=== PATIENT | male | born 1975 | race African-American/Black ===

== ENCOUNTER 2019-02-22 22:40 | Emergency (ER) | payer MEDICAID ==
[~2019-02-22] VITALS: Ht 193 cm; Wt 111.1 kg
--- NOTE | 2019-02-22 23:50 | NUR ---
PT BIBSELF, PT C/C IS SUICDAL IDEATION WITH PLANS TO CUTS WRIST. PT TO BED 6, SECURITY CALLED FOR PT TO BED WANDED FOR SAFETY, PT IS CALM AND COOPERATIVE WITH CARE, ALL BELOGINGS IN LOCKER FOR SAFETY, PT ON A MONITOR, VSS, -SOB, NAD NOTED, PENDING MD WINSTON
--- NOTE | 2019-02-22 23:55 | NUR ---
PLACED IN ROOM, BELONGINGS TAKEN TO NURSES STATION. WANDED AND CLEARED BY SECURITY.
[2019-02-23 00:13] LABS: APPEARANCE,URINE Clear (CLEAR); BILIRUBIN,URINE SMALL (NEGATIVE); BLOOD, URINE Negative Ery/uL (NEGATIVE); COLOR,URINE Yellow (YELLOW); KETONES,URINE Negative (NEGATIVE); LEUKOCYTE ESTERASE ,URINE Negative (NEGATIVE); NITRITE, URINE Negative (NEGATIVE); PROTEIN,URINE Trace mg/dl (NEGATIVE); UGLUCOSE Negative (NEGATIVE)
[2019-02-23 00:24] LABS: BASOPHILS % (AUTO) 0.5 % (0.0-2.0); HEMATOCRIT 40 % (39-51); HEMOGLOBIN 13.5 g/dL (13.5-17.5); LYMPHOCYTES % (AUTO) 23.2 % (20.0-44.0); MEAN CORPUSCULAR HGB CONC 34 g/dl (31.0-36.0); MEAN CORPUSCULAR VOLUME 89 fL (80-96); MONOCYTES # (AUTO) 0.8 /CMM (0.1-1.30); MONOCYTES % (AUTO) 9.7 % (2.0-12.0); NEUTROPHILS # (AUTO) 5.5 /CMM (1.8-8.9); NEUTROPHILS % (AUTO) 64.6 % (43.0-81.0); PLATELET COUNT (AUTO) 312 /CMM (150-450); WHITE BLOOD COUNT (AUTO) 8.5 K/uL (4.3-11.0)
--- NOTE | 2019-02-23 00:50 | NUR ---
PT WAS YELLING IN THE HALLWAY ASKING FOR FOOD AND WATER. WENT TO PATIENT'S ROOM TO ADDRESS PATIENTS CONCERN, PT SEEMED TO BE MORE AGITATED. TOLD PATIENT THAT I WILL GRAB HIM SOME SNACKS
[2019-02-23 00:57] LABS: CALCIUM, SERUM 8.4 mg/dL (8.5-10.1); CARBON DIOXIDE 30 mmol/L (21-32); CHLORIDE 106 mmol/L (98-107); GLUCOSE 111 mg/dL (74-106); POTASSIUM 3.7 mmol/L (3.5-5.1); SODIUM SERUM 143 mmol/L (136-145); UREA NITROGEN, BLOOD 18 mg/dL (7-18)
--- NOTE | 2019-02-23 01:03 | NUR ---
PT WANDERING THE HALLWAY SCREAMING "I WANT SOME ICE WATER, I WANT SOME ICE WATER" PT WAS ASKED TO GO BACK TO THE ROOM AND WE WILL BRING THE ICE WATER TO HIM. PT TURNED AROUND WITH CLINCHED FIST. SECURITY CALLED FOR ASSISTANCE.
--- NOTE | 2019-02-23 01:06 | NUR ---
PT ASSISTED BACK TO THE ROOM. ER MADE AWARE OF PT BEHAVIOR WITH ORDERS RECEIVED.
[2019-02-23 01:09] LABS: ALANINE AMINOTRANSFERASE 28 U/L (12-78); ALBUMIN 3.7 g/dL (3.4-5.0); ALCOHOL, BLOOD < 3 mg/dL (0-0); ALKALINE PHOSPHATASE 97 U/L (46-116); ASPARTATE AMINOTRANSFERASE 28 U/L (15-37); BILIRUBIN,DIRECT 0.1 mg/dL (0.0-0.2); BILIRUBIN,TOTAL 0.4 mg/dL (0.2-1.0); TOTAL PROTEIN, SERUM 7.2 g/dL (6.4-8.2)
[2019-02-23 01:10] LABS: ACETAMINOPHEN 0 ug/ml (10-30); SALICYLATE 1.3 mg/dL (2.8-20.0)
[2019-02-23 01:11] LABS: BACTERIA,URINE None seen /HPF (None Seen); MUCUS,URINE Few /LPF (None Seen); RBC,URINE 0-2 /HPF (0-2); SQUAMOUS EPITHELIAL CELL,UR Few /HPF (None Seen); WBC,URINE 0-2 /HPF (0-3)
[2019-02-23] MEDS ORDERED: OLANZAPINE 10 MG VIAL IM ONE ×2 (01:30)
[2019-02-23] MEDS ORDERED: LORAZEPAM INJ 2 MG/ML VIAL ONE (02:01)
[2019-02-23] MEDS ORDERED: LORAZEPAM INJ 2 MG/ML VIAL IM ONE (02:30)
--- NOTE | 2019-02-23 12:30 | NUR ---
CALLED [facility] FOR UPDATE, NO CHANGES
--- NOTE | 2019-02-23 13:09 | NUR ---
CALLED [facility] FOR FOOD TRAY
--- NOTE | 2019-02-23 14:35 | NUR ---
CATTLE PRODUCERS PINKY AT BEDSIDE FOR EVAL.
--- NOTE | 2019-02-23 15:43 | NUR ---
DR JORGENSEN AT BEDSIDE
--- NOTE | 2019-02-23 16:07 | NUR ---
PER ARUN, WILL FOLLOW UP WITH NATHANER FOR PLACEMENT
--- NOTE | 2019-02-23 18:33 | NUR ---
CALLED FOR FOOD TRAY
--- NOTE | 2019-02-23 22:21 | NUR ---
PT RESTING COMFORTABLY IN BED. NO COMPLAINTS AT THIS TIME. WILL CONT TO MONITOR ACCORDINGLY
--- NOTE | 2019-02-24 00:05 | NUR ---
PATIENT CURSING AND INSTIGATING TOWARD OTHER PATIENT IN ER.
--- NOTE | 2019-02-24 03:45 | NUR ---
PT AT NURSES STATING, VERBALLY AGGRESSIVE TOWARDS STAFF, THREATENING STAFF. REFUSING TO RETURN TO BED. PT UNCOOPERATIVE. SECURITY AND NURSING SUP NOTIFIED.
[2019-02-24] MEDS ORDERED: OLANZAPINE 10 MG VIAL IM ONE ×2 (07:12→07:30)
[2019-02-24] MEDS ORDERED: LORAZEPAM INJ 2 MG/ML VIAL ONE (09:07)
[2019-02-24] MEDS ORDERED: LORAZEPAM INJ 2 MG/ML VIAL IM ONE (09:08)
--- NOTE | 2019-02-24 09:08 | NUR ---
PT IS AGITATED, TRYING TO TILT THE BED OVER. YELLING. ERMD AWARE. ATIVAN 2MG IM GIVEN PER ERMD VERBAL ORDER.
--- NOTE | 2019-02-24 09:36 | NUR ---
PT YELLING, CALLING STAFF, SITTER AT BEDSIDE, PT STATES " IM NOT SUICIDAL, BUT IM HOMICIDAL, IM GOING TO KILL ALL OF YOU". CHECKED EXTREMITIES FOR CIRCULATION, PT IS ALERT AND ORIENTED, DENIES ANY PAIN/DISCOMFORT, VSS, NAD NOTED.
[2019-02-24] MEDS ORDERED: VENL75CA62 PO (14:41)
[2019-02-24] MEDS ORDERED: OLAN10TA3 PO (14:41)
--- NOTE | 2019-02-24 15:05 | NUR ---
REPORT GIVEN TO JATIN. WILL BE TRANSFERED TO [facility]. ACCEPTING . DR RINCON
--- NOTE | 2019-02-24 15:11 | NUR ---
SPOKE TO EVI FROM [facility], [facility] TRANSPORT ARRANGED, ETA 1630, TRIP NUMBER [id number].
[2019-02-24 16:35] VITALS: BP 118/50
== END 2019-02-24 16:54 ==
LOC: ER 22:44
DX: R45.851 Suicidal ideations (principal); F19.10 Other psychoactive substance abuse, uncomplicated; F90.9 Attention-deficit hyperactivity disorder, unspecified type; G40.909 Epilepsy, unspecified, not intractable, without status epilepticus; G89.29 Other chronic pain; Z60.2 Problems related to living alone
CPT/HCPCS: 36415; 80048; 80076; 80305; 80307; 80329; 81001; 85025; 96372 ×4; 99285; G0480; J2060 ×2; J3490 ×2; 81000-TC

== ENCOUNTER 2019-03-07 14:44 | Emergency (ER) | payer MEDICAID ==
[~2019-03-07] VITALS: Ht 193 cm; Wt 108.9 kg
[~2019-03-07 14:44] MED LIST: OLAN10TA3 PO; VENL75CA62 PO
[2019-03-07 14:51] VITALS: BP 152/92
--- NOTE | 2019-03-07 18:04 | NUR ---
Patient discharged to home in stable condition. Written and verbal after care instructions given. Patient verbalizes understanding of instruction.
== END 2019-03-07 18:06 | disposition home or self-care (01) ==
LOC: ER 14:46
DX: S02.5XXA Fracture of tooth (traumatic), initial encounter for closed fracture (principal); M25.561 Pain in right knee; G40.909 Epilepsy, unspecified, not intractable, without status epilepticus; F31.9 Bipolar disorder, unspecified; F10.10 Alcohol abuse, uncomplicated; Y90.9 Presence of alcohol in blood, level not specified; Z60.2 Problems related to living alone; W18.39XA Other fall on same level, initial encounter; Y93.89 Activity, other specified; Y92.89 Other specified places as the place of occurrence of the external cause; Y99.8 Other external cause status

== ENCOUNTER 2019-04-29 13:33 | Emergency (ER) | payer MEDICAID, OTHER ==
[~2019-04-29] VITALS: Ht 193 cm; Wt 106.6 kg
--- NOTE | 2019-04-29 14:00 | NUR ---
patient came in to the er c/o panic attack since last night, no sob, denies SI/HI. on room air, breathing evenly and unlabored. connected to the monitor and pulse ox. will continue to monitor accordingly.
[2019-04-29] MEDS ORDERED: OLANZAPINE 5 MG TABLET ONE (14:26)
[2019-04-29] MEDS ORDERED: LEVETIRACETAM (250 MG) 250 MG TABLET PO ONE ×2 (14:30→14:32)
[2019-04-29] MEDS ORDERED: OLANZAPINE 5 MG TABLET PO ONE (14:30)
[2019-04-29 14:36] LABS: BASOPHILS % (AUTO) 0.4 % (0.0-2.0); EOSINOPHILS % (AUTO) 2.4 % (0.0-6.0); HEMATOCRIT 41 % (39-51); HEMOGLOBIN 13.7 g/dL (13.5-17.5); LYMPHOCYTES # (AUTO) 1.7 /CMM (0.8-4.8); LYMPHOCYTES % (AUTO) 23.4 % (20.0-44.0); MEAN CORPUSCULAR HGB CONC 33 g/dl (31.0-36.0); MEAN CORPUSCULAR VOLUME 89 fL (80-96); MONOCYTES # (AUTO) 0.6 /CMM (0.1-1.30); MONOCYTES % (AUTO) 8.3 % (2.0-12.0); NEUTROPHILS # (AUTO) 4.8 /CMM (1.8-8.9); NEUTROPHILS % (AUTO) 65.5 % (43.0-81.0); PLATELET COUNT (AUTO) 306 /CMM (150-450); RED BLOOD CELL COUNT(AUTO) 4.63 MIL/uL (4.5-6.0); WHITE BLOOD COUNT (AUTO) 7.3 K/uL (4.3-11.0)
[2019-04-29 14:58] LABS: ALANINE AMINOTRANSFERASE 14 U/L (12-78); ALBUMIN 3.8 g/dL (3.4-5.0); ALKALINE PHOSPHATASE 85 U/L (46-116); ASPARTATE AMINOTRANSFERASE 17 U/L (15-37); BILIRUBIN,DIRECT 0.1 mg/dL (0.0-0.2); BILIRUBIN,TOTAL 0.4 mg/dL (0.2-1.0); CARBON DIOXIDE 28 mmol/L (21-32); CHLORIDE 103 mmol/L (98-107); CREATININE 0.9 mg/dL (0.6-1.3); GLUCOSE 85 mg/dL (74-106); POTASSIUM 3.6 mmol/L (3.5-5.1); SODIUM SERUM 139 mmol/L (136-145); TOTAL PROTEIN, SERUM 7.5 g/dL (6.4-8.2); UREA NITROGEN, BLOOD 18 mg/dL (7-18)
[2019-04-29 14:59] LABS: ALCOHOL, BLOOD < 3 mg/dL (0-0); SALICYLATE < 2.8 mg/dL (2.8-20.0)
--- NOTE | 2019-04-29 15:40 | NUR ---
Yuliana social security assessor at bedside for eval.
--- NOTE | 2019-04-29 15:45 | NUR ---
Social service consult requested by Dr. Landon for voluntary psychiatric admission. Pt. is a 43 year old male who came to [facility] ED complaining of panic attacks and anxiety. SW met with pt. bedside. Pt. is alert and oriented x 4. Pt. has tattoos over both his arms. Pt. states he has been homeless for a week. He was living at " [facility]" [facility] but left there on a 5150 hold to [facility]. Pt. has a psychiatric diagnosis of Bipolar. Pt. informed Dr. Landon that he is hearing voices that are telling him that "people are out to get me." Pt. is a methamphetamine user and last used this morning. Pt. also uses marijuana and drinks alcohol. Pt. has been to an outpatient treatment program in the past named [facility] in [place]. Pt. is seeking voluntary psychiatric admission to [facility]. Pt. states he is not allowed to go to [facility]. TICO contacted Demian at [facility] requesting a bed for the pt. at [place]. Demian will check with [facility] and follow up with TICO.
--- NOTE | 2019-04-29 15:46 | NUR ---
urine collected and sent to lab.
[2019-04-29 15:52] LABS: APPEARANCE,URINE Clear (CLEAR); BILIRUBIN,URINE Negative (NEGATIVE); BLOOD, URINE Negative Ery/uL (NEGATIVE); COLOR,URINE Yellow (YELLOW); KETONES,URINE Negative (NEGATIVE); LEUKOCYTE ESTERASE ,URINE Negative (NEGATIVE); NITRITE, URINE Negative (NEGATIVE); PROTEIN,URINE Negative (NEGATIVE); UGLUCOSE Negative (NEGATIVE); UROBILINOGEN,URINE 0.2 EU/dL (0.2)
--- NOTE | 2019-04-29 16:05 | NUR ---
TICO called Demian to follow up regarding pt. being accepted to [facility]. Demian informed SW he is waiting for [facility] to get back to him. Demian informed TICO to have ER staff follow up with him. TICO updated JERICHO Cisneros in ED with aforementioned information.
--- NOTE | 2019-04-29 18:07 | NUR ---
Received a call from [facility] intake regardinig patient going to [facility] and will call back for updates once bed available.
--- NOTE | 2019-04-29 19:35 | NUR ---
KRYSTLE FROM [facility] P [phone] F [phone]
--- NOTE | 2019-04-29 20:04 | NUR ---
RECEIVED REPORT FROM JERICHO VERGARA FOR [facility], PT IS AAOX4, NOT IN RESPIRATORY DISTRESS, V/S STABLE, KEPT RESTED AND COMFORTABLE, WILL CONTINUE TO MONITOR.
--- NOTE | 2019-04-29 21:20 | NUR ---
PER [facility] INTAKE, BED NO LONGER AVAILABLE AT [facility]. CLINICAL INFORMATION WILL BE SENT TO [place], PENDING MORE INFORMATION ON POSSIBLE TRANSFER
--- NOTE | 2019-04-29 22:48 | NUR ---
PER SOC[facility] INTAKE, PT ACCEPTED TO [facility]. PENDING MORE INFORMATION
--- NOTE | 2019-04-30 00:55 | NUR ---
PER [facility] INTAKE, PT SUICIDAL IDEATION W/ PLAN MUST BE FAXED AND WILL CALL BACK FOR UPDATES
--- NOTE | 2019-04-30 01:23 | NUR ---
PER [facility] INTAKE, RECEIVED FAX ON UPDATED MD NOTE. WILL UPDATE WITH NEW INFORMATION FOR TRANSFER
--- NOTE | 2019-04-30 04:11 | NUR ---
CALLED [facility] INTAKE FOR UPDATE, CLINICAL INFORMATION BEING REVIEWED BY [facility] SUPERVISOR, WILL CALL BACK FOR MORE INFORMATION.
--- NOTE | 2019-04-30 05:22 | NUR ---
PER SOC[facility] INTAKE, NO BEDS AVAILABLE AT THIS TIME FOR [facility]
--- NOTE | 2019-04-30 05:35 | NUR ---
CALLED DECLAN, RETAIL ADMINISTRATIVE ASSISTANT FOR EVALUATION. NO ANSWER. WILL FOLLOW UP
--- NOTE | 2019-04-30 06:01 | NUR ---
PT ACCEPTED TO [facility]. CALLED [facility] FOR TRANSPORTATION, PENDING ETA
--- NOTE | 2019-04-30 06:13 | NUR ---
[facility] ETA 0700A, TRIP #[id number].
--- NOTE | 2019-04-30 06:14 | NUR ---
REPORT GIVEN TO JERICHO BHARDWAJ OF [facility] FOR [facility].
[2019-04-30 06:46] VITALS: BP 106/59
--- NOTE | 2019-04-30 07:09 | NUR ---
GAVE REPORT TO [place] [id number] FOR TRANSPORTATION BRE[facility]
== END 2019-04-30 07:11 | disposition short-term general hospital (02) ==
LOC: ER 13:47
DX: F29 Unspecified psychosis not due to a substance or known physiological condition (principal); F41.9 Anxiety disorder, unspecified; R56.9 Unspecified convulsions; G89.29 Other chronic pain; M25.569 Pain in unspecified knee; F31.9 Bipolar disorder, unspecified; F10.10 Alcohol abuse, uncomplicated; F12.10 Cannabis abuse, uncomplicated; F15.10 Other stimulant abuse, uncomplicated; Y90.0 Blood alcohol level of less than 20 mg/100 ml; Z60.2 Problems related to living alone; Z79.899 Other long term (current) drug therapy
CPT/HCPCS: 36415; 80048; 80076; 80305; 80307; 80329; 81001; 85025; 99285; G0480; 81000-TC

== ENCOUNTER 2019-07-05 07:22 | Emergency (ER) | payer OTHER ==
[~2019-07-05] VITALS: Ht 193 cm; Wt 102.1 kg
--- NOTE | 2019-07-05 07:39 | NUR ---
PATIENT STATES "FEELING HOPELESS/SUICIDAL FOR COUPLE OF DAYS, NO PLANS FOR NOW". TO ER BED 13, CHANGED TO HOSP GOWN, WANDED BY SECURITY, SITTER AT BEDSIDE, AWAITING MD WINSTON. KEPT COMFORTABLE AND SAFE.
[2019-07-05 08:04] LABS: BASOPHILS % (AUTO) 0.5 % (0.0-2.0); EOSINOPHILS % (AUTO) 3.8 % (0.0-6.0); HEMATOCRIT 40 % (39-51); HEMOGLOBIN 13.3 g/dL (13.5-17.5); LYMPHOCYTES # (AUTO) 1.6 /CMM (0.8-4.8); LYMPHOCYTES % (AUTO) 28.5 % (20.0-44.0); MEAN CORPUSCULAR HGB CONC 33 g/dl (31.0-36.0); MEAN CORPUSCULAR VOLUME 89 fL (80-96); MONOCYTES # (AUTO) 0.5 /CMM (0.1-1.30); MONOCYTES % (AUTO) 8.3 % (2.0-12.0); NEUTROPHILS # (AUTO) 3.3 /CMM (1.8-8.9); NEUTROPHILS % (AUTO) 58.9 % (43.0-81.0); PLATELET COUNT (AUTO) 283 /CMM (150-450); RED BLOOD CELL COUNT(AUTO) 4.52 MIL/uL (4.5-6.0); WHITE BLOOD COUNT (AUTO) 5.7 K/uL (4.3-11.0)
--- NOTE | 2019-07-05 08:04 | NUR ---
SUPERVISOR STITCHING DEPARTMENT FAUZIA AT BEDSIDE
[2019-07-05 08:07] LABS: CALCIUM, SERUM 8.6 mg/dL (8.5-10.1); CREATININE 0.7 mg/dL (0.6-1.3); POTASSIUM 3.6 mmol/L (3.5-5.1)
--- NOTE | 2019-07-05 08:12 | NUR ---
PATIENT STATES "I PLAN TO CUT MY WRIST".
[2019-07-05 08:13] LABS: ALBUMIN 3.6 g/dL (3.4-5.0); BILIRUBIN,DIRECT 0.1 mg/dL (0.0-0.2); BILIRUBIN,TOTAL 0.4 mg/dL (0.2-1.0); TOTAL PROTEIN, SERUM 7.3 g/dL (6.4-8.2)
[2019-07-05 08:15] LABS: SALICYLATE 1.6 mg/dL (2.8-20.0)
--- NOTE | 2019-07-05 08:17 | NUR ---
[facility]AKFAST TRAY PROVIDED, TOLERATING PO WELL.
--- NOTE | 2019-07-05 08:20 | NUR ---
Social service consult requested by Dr. Vincent for suicidal ideations with a plan. Pt. is a 43 year old male who presented to the emergency room complaining of feeling depressed and suicidal. Patient states he plans to jump off the [employer] building and he also states that his cut his wrists in the past. SW met with the pt. bedside. Pt. is alert and oriented x 4. Pt. appears to have a foul odor. Pt. is homeless and has been for a while. Pt. states he sleeps here and there in the [facility]. Pt. is on probation, however states, his probation ends on July 082019. Pt. appears disheveled. Pt. has tattoos on both is arms. Pt's mood is congruent. Pt. informed SW, he is feeling depressed, hopeless and has a plan to jump off the [employer] or any bridge and cut his wrists as he has done in the past. Pt. denies homicidal ideations and visual/auditory hallucinations at this time. Pt. is seeking voluntary hospitalization at [facility]. Pt. was hospitalized voluntary at [facility] in April 2019. Pt. has had several psychiatric hospitalizations. Pt. has a psychiatric diagnosis of Bipolar and takes Zyprexa, Wellbutrin and Keppra. Pt. states he is complaint with his medications. Pt. admits to using methamphetamines, marijuana and alcohol. Pt. sees a psychiatrist at [place] [address], a forensic Treatment agency located at [address] [place] [address] in [place] . SW to refer pt. to [facility] for voluntary psychiatric hospitalization. TICO contacted Demian at [facility] and initiated the process. SW to fax clinicals once labs are available.
--- NOTE | 2019-07-05 08:33 | NUR ---
URINE SAMPLE SENT TO LAB
--- NOTE | 2019-07-05 09:53 | NUR ---
Clinical referral packet faxed to [facility] .
[2019-07-05 10:14] LABS: APPEARANCE,URINE CLEAR (CLEAR); BILIRUBIN,URINE NEGATIVE (NEGATIVE); BLOOD, URINE NEGATIVE Ery/uL (NEGATIVE); COLOR,URINE YELLOW (YELLOW); KETONES,URINE 15 (NEGATIVE); LEUKOCYTE ESTERASE ,URINE NEGATIVE (NEGATIVE); NITRITE, URINE NEGATIVE (NEGATIVE); PH,URINE 5.5 (5.0-8.0); PROTEIN,URINE NEGATIVE (NEGATIVE); UGLUCOSE NEGATIVE (NEGATIVE); UROBILINOGEN,URINE 0.2 EU/dL (0.2)
[2019-07-05 10:19] LABS: BACTERIA,URINE Rare /HPF (None Seen); RBC,URINE 0-2 /HPF (0-2); SQUAMOUS EPITHELIAL CELL,UR Rare /HPF (None Seen); URIC ACID CRYSTALS,URINE Rare /HPF (None Seen)
--- NOTE | 2019-07-05 11:48 | NUR ---
FAXED NOTE TO [facility]
--- NOTE | 2019-07-05 12:11 | NUR ---
[facility] ETA 1300 TRIP#[id number]
--- NOTE | 2019-07-05 13:06 | NUR ---
UPDATED ETA 10 MIN
--- NOTE | 2019-07-05 14:11 | NUR ---
REPORT GIVEN TO [facility] FOR CONTINUITY OF CARE
[2019-07-05 15:32] VITALS: BP 131/81
== END 2019-07-05 15:38 ==
LOC: ER 07:26
DX: R45.851 Suicidal ideations (principal); F15.10 Other stimulant abuse, uncomplicated; G89.29 Other chronic pain; F31.9 Bipolar disorder, unspecified; Z60.2 Problems related to living alone; Z79.899 Other long term (current) drug therapy
CPT/HCPCS: 36415; 80048; 80076; 80305; 80307; 80329; 81001; 85025; 99285; G0480; 81000-TC

== ENCOUNTER 2019-07-13 18:59 | Emergency (ER) | payer OTHER ==
[~2019-07-13] VITALS: Ht 185.4 cm; Wt 80.3 kg
[2019-07-13 20:04] VITALS: BP 144/78
[2019-07-13 20:13] LABS: BASOPHILS # (AUTO) 0.1 /CMM (0.0-0.2); BASOPHILS % (AUTO) 0.8 % (0.0-2.0); EOSINOPHILS % (AUTO) 2.1 % (0.0-6.0); HEMATOCRIT 43 % (39-51); HEMOGLOBIN 14.3 g/dL (13.5-17.5); LYMPHOCYTES # (AUTO) 2.4 /CMM (0.8-4.8); LYMPHOCYTES % (AUTO) 30.1 % (20.0-44.0); MEAN CORPUSCULAR HGB CONC 33 g/dl (31.0-36.0); MEAN CORPUSCULAR VOLUME 88 fL (80-96); MONOCYTES # (AUTO) 0.6 /CMM (0.1-1.30); MONOCYTES % (AUTO) 7.9 % (2.0-12.0); NEUTROPHILS # (AUTO) 4.8 /CMM (1.8-8.9); NEUTROPHILS % (AUTO) 59.1 % (43.0-81.0); PLATELET COUNT (AUTO) 358 /CMM (150-450); RED BLOOD CELL COUNT(AUTO) 4.87 MIL/uL (4.5-6.0); WHITE BLOOD COUNT (AUTO) 8.1 K/uL (4.3-11.0)
[2019-07-13 20:15] LABS: APPEARANCE,URINE Clear (CLEAR); BILIRUBIN,URINE Negative (NEGATIVE); BLOOD, URINE Negative Ery/uL (NEGATIVE); COLOR,URINE Yellow (YELLOW); KETONES,URINE 15 (NEGATIVE); LEUKOCYTE ESTERASE ,URINE Negative (NEGATIVE); NITRITE, URINE Negative (NEGATIVE); PH,URINE 5.5 (5.0-8.0); PROTEIN,URINE Negative (NEGATIVE); UGLUCOSE Negative (NEGATIVE); UROBILINOGEN,URINE 0.2 EU/dL (0.2)
[2019-07-13 20:20] LABS: CALCIUM, SERUM 9.4 mg/dL (8.5-10.1); CARBON DIOXIDE 30 mmol/L (21-32); CHLORIDE 101 mmol/L (98-107); GLUCOSE 92 mg/dL (74-106); POTASSIUM 4.1 mmol/L (3.5-5.1); SODIUM SERUM 139 mmol/L (136-145); UREA NITROGEN, BLOOD 17 mg/dL (7-18)
--- NOTE | 2019-07-13 20:21 | NUR ---
BIBS TO ER BED 13. AAOX4. NO RESP DISTRESS NOTED. AMBULATORY. CAME IN FOR SUICIDAL IDEATION W/ PLAN TO CUT HIS WRIST. DENIES HI. DENIES VISUAL AND AUDITORY HALLUCINATION. PT STRIPPED OFF CLOTHING AND BELONGINGS PLACED IN THE LOCKER LOCATED IN THE UTILITY ROOM. VISUAL INSPECTED FOR ANY CONTRABAND. 1:1 SITTER AT BEDSIDE. MD AT BEDSIDE FOR EVAL.
[2019-07-13 20:26] LABS: ACETAMINOPHEN < 2 ug/ml (10-30); ALANINE AMINOTRANSFERASE 29 U/L (12-78); ALCOHOL, BLOOD < 3 mg/dL (0-0); ALKALINE PHOSPHATASE 85 U/L (46-116); ASPARTATE AMINOTRANSFERASE 25 U/L (15-37); BILIRUBIN,DIRECT 0.2 mg/dL (0.0-0.2); BILIRUBIN,TOTAL 0.7 mg/dL (0.2-1.0); SALICYLATE 1.1 mg/dL (2.8-20.0); TOTAL PROTEIN, SERUM 8.2 g/dL (6.4-8.2)
[2019-07-13 20:30] LABS: BACTERIA,URINE Moderate /HPF (None Seen); RBC,URINE 0-2 /HPF (0-2); SQUAMOUS EPITHELIAL CELL,UR Few /HPF (None Seen); WBC,URINE 0-2 /HPF (0-3)
[2019-07-13] MEDS ORDERED: LORAZEPAM 1 MG TABLET PO ONE (20:30)
[2019-07-13] MEDS ORDERED: LORAZEPAM 1 MG TABLET ONE (20:43)
--- NOTE | 2019-07-14 00:16 | NUR ---
TRANSFER INFO: PT ACCEPTED BY DR VALADEZ AT [facility], RN FOR REPORT CHG JERICHO ROSARIO [phone] [phone], ROOM ASSIGNMENT GIVEN AFTER REPORT.
--- NOTE | 2019-07-14 00:36 | NUR ---
CALLED [facility] AWAITING CALL BACK WITH ETA REF#[phone]
--- NOTE | 2019-07-14 00:49 | NUR ---
[facility] ETA 0306
--- NOTE | 2019-07-14 01:53 | NUR ---
REPORT GIVEN TO TOÑO ECHAVARRIA FOR CONTINUATION OF CARE.
--- NOTE | 2019-07-14 03:51 | NUR ---
[facility] AT BEDSIDE FOR TRANSPORT.
== END 2019-07-14 04:03 ==
LOC: ER 19:01
DX: R45.851 Suicidal ideations (principal); F19.10 Other psychoactive substance abuse, uncomplicated; F25.9 Schizoaffective disorder, unspecified; I10 Essential (primary) hypertension; G40.909 Epilepsy, unspecified, not intractable, without status epilepticus; G89.29 Other chronic pain; Z60.2 Problems related to living alone; Z79.899 Other long term (current) drug therapy
CPT/HCPCS: 36415; 80048; 80076; 80305; 80307; 80329; 81001; 85025; 87086; 99285; G0480; 81000-TC

== ENCOUNTER 2019-11-08 21:52 | Emergency (ER) | payer OTHER ==
[~2019-11-08] VITALS: Ht 190.5 cm; Wt 103.0 kg
--- NOTE | 2019-11-08 21:54 | NUR ---
PT AAOX4. AMBULATORY. C/O "I HAVE SUICIDAL THOUGHTS ON KILLING MYSELF" SI WITH PLAN TO HANG SELF. BUT -HI. PLACED IN GOWN, ON MONITOR AND PULSE OX. VSS.
--- NOTE | 2019-11-08 22:24 | NUR ---
QI PLACED IN LOCKER. VSS.
[2019-11-08 23:35] LABS: APPEARANCE,URINE CLEAR (CLEAR); BILIRUBIN,URINE NEGATIVE (NEGATIVE); BLOOD, URINE NEGATIVE Ery/uL (NEGATIVE); COLOR,URINE YELLOW (YELLOW); KETONES,URINE NEGATIVE (NEGATIVE); LEUKOCYTE ESTERASE ,URINE NEGATIVE (NEGATIVE); NITRITE, URINE NEGATIVE (NEGATIVE); PROTEIN,URINE NEGATIVE (NEGATIVE); UGLUCOSE NEGATIVE (NEGATIVE)
[2019-11-08 23:35] LABS: CALCIUM, SERUM 8.5 mg/dL (8.5-10.1); CARBON DIOXIDE 29 mmol/L (21-32); CHLORIDE 102 mmol/L (98-107); GLUCOSE 98 mg/dL (74-106); POTASSIUM 3.5 mmol/L (3.5-5.1); SODIUM SERUM 140 mmol/L (136-145); UREA NITROGEN, BLOOD 11 mg/dL (7-18)
[2019-11-08 23:41] LABS: ALANINE AMINOTRANSFERASE 21 U/L (12-78); ALBUMIN 3.6 g/dL (3.4-5.0); ALCOHOL, BLOOD < 3 mg/dL (0-0); ALKALINE PHOSPHATASE 88 U/L (46-116); ASPARTATE AMINOTRANSFERASE 24 U/L (15-37); BILIRUBIN,DIRECT 0.1 mg/dL (0.0-0.2); BILIRUBIN,TOTAL 0.3 mg/dL (0.2-1.0); TOTAL PROTEIN, SERUM 7.6 g/dL (6.4-8.2)
[2019-11-08 23:42] LABS: ACETAMINOPHEN 0 ug/ml (10-30); SALICYLATE 2.2 mg/dL (2.8-20.0)
[2019-11-08 23:44] LABS: BASOPHILS % (AUTO) 0.3 % (0.0-2.0); EOSINOPHILS % (AUTO) 3.1 % (0.0-6.0); HEMATOCRIT 42 % (39-51); HEMOGLOBIN 13.8 g/dL (13.5-17.5); LYMPHOCYTES # (AUTO) 1.7 /CMM (0.8-4.8); LYMPHOCYTES % (AUTO) 26.8 % (20.0-44.0); MEAN CORPUSCULAR HGB CONC 33 g/dl (31.0-36.0); MEAN CORPUSCULAR VOLUME 88 fL (80-96); MONOCYTES # (AUTO) 0.4 /CMM (0.1-1.30); MONOCYTES % (AUTO) 6.7 % (2.0-12.0); NEUTROPHILS % (AUTO) 63.1 % (43.0-81.0); PLATELET COUNT (AUTO) 306 /CMM (150-450); WHITE BLOOD COUNT (AUTO) 6.3 K/uL (4.3-11.0)
[2019-11-08 23:47] LABS: BACTERIA,URINE None seen /HPF (None Seen); RBC,URINE 0-2 /HPF (0-2); SQUAMOUS EPITHELIAL CELL,UR Few /HPF (None Seen); WBC,URINE 0-2 /HPF (0-3)
--- NOTE | 2019-11-09 00:02 | NUR ---
Patient is resting comfortably in bed. Easily aroused. VSS.
--- NOTE | 2019-11-09 00:37 | NUR ---
CLINICAL INFORMATION FAXED TO [facility]
[2019-11-09 00:40] VITALS: BP 142/87
[2019-11-09] MEDS ORDERED: ACETAMINOPHEN 325 MG TABLET ONE (01:26)
[2019-11-09] MEDS ORDERED: LORAZEPAM 0.5 MG TABLET ONE (01:26)
[2019-11-09] MEDS: LORAZEPAM 1 MG TABLET PO ONE (01:30)
[2019-11-09] MEDS: ACETAMINOPHEN 325 MG TABLET PO ONE (01:30)
[2019-11-09] MEDS ORDERED: OLANZAPINE 5 MG TABLET ONE (01:47)
--- NOTE | 2019-11-09 01:47 | NUR ---
MD GAVE VERBAL ORDER TO GIVE PATIENT ZYPREXA 10MG ORALLY ONCE NOW.
--- NOTE | 2019-11-09 01:50 | NUR ---
10MG OF ZYPREXA PO GIVEN TO PATIENT.
--- NOTE | 2019-11-09 02:02 | NUR ---
PT ACCEPTED AT [facility] ACCEPTING MD WASSERMAN PHONE # FOR REPORT PT WILL GO TO UNIT 2
--- NOTE | 2019-11-09 02:12 | NUR ---
REPORT CALLED TO ALVARO ECHAVARRIA SEBASTIÁN. AWAITING TRANSPORT.
--- NOTE | 2019-11-09 02:13 | NUR ---
CALLED [facility] FOR TRANSPORTATION. WILL CALL BACK WITH ANA MARÍA. TRIP #[id number]
--- NOTE | 2019-11-09 03:11 | NUR ---
30-45 MINS [facility].
--- NOTE | 2019-11-09 03:43 | NUR ---
REPORT GIVEN TO TRANSPORT TEAM FOR BRE[facility]. AND TRANSFERRING RESPONSIBILITIES.
== END 2019-11-09 03:45 | disposition other institution (70) ==
LOC: ER 21:56
DX: R45.851 Suicidal ideations (principal); F32.9 Major depressive disorder, single episode, unspecified; R56.9 Unspecified convulsions; I10 Essential (primary) hypertension; F25.9 Schizoaffective disorder, unspecified; Z60.2 Problems related to living alone; Z79.899 Other long term (current) drug therapy
CPT/HCPCS: 36415; 80048; 80076; 80305; 80307; 80329; 81001; 85025; 99284; G0480; 81000-TC

== ENCOUNTER 2019-11-28 21:06 | Emergency (ER) | payer OTHER ==
[~2019-11-28] VITALS: Ht 190.5 cm; Wt 103.0 kg
--- NOTE | 2019-11-28 21:35 | NUR ---
PATIENT CAME ER BED 14 C/O RIGHT FOOT PAIN. PATIENT STATES THAT HE WAS ON THE [place] ON THE WAY FROM [facility] WHEN HE TRIED TO CHARGE HIS PHONE AND DID THE SPLITS ON THE [employer] AND HURT HIS RIGHT ANKLE. PATIENT IS AAOX4. NO SOB. BREATHING EVENLY AND UNLABORED ON ROOM AIR.
[2019-11-28] MEDS ORDERED: OLANZAPINE 5 MG TABLET ONE (21:50)
--- NOTE | 2019-11-28 21:53 | NUR ---
BLOOD DRAWN AND SENT TO LAB.
[2019-11-28 22:00] LABS: BASOPHILS # (AUTO) 0.1 /CMM (0.0-0.2); BASOPHILS % (AUTO) 0.9 % (0.0-2.0); EOSINOPHILS % (AUTO) 0.6 % (0.0-6.0); HEMATOCRIT 44 % (39-51); HEMOGLOBIN 14.6 g/dL (13.5-17.5); LYMPHOCYTES # (AUTO) 2.8 /CMM (0.8-4.8); LYMPHOCYTES % (AUTO) 27.7 % (20.0-44.0); MEAN CORPUSCULAR HGB CONC 34 g/dl (31.0-36.0); MEAN CORPUSCULAR VOLUME 87 fL (80-96); MONOCYTES % (AUTO) 10.2 % (2.0-12.0); NEUTROPHILS # (AUTO) 6.1 /CMM (1.8-8.9); NEUTROPHILS % (AUTO) 60.6 % (43.0-81.0); PLATELET COUNT (AUTO) 364 /CMM (150-450); RED BLOOD CELL COUNT(AUTO) 5.02 MIL/uL (4.5-6.0); WHITE BLOOD COUNT (AUTO) 10.1 K/uL (4.3-11.0)
[2019-11-28] MEDS ORDERED: OLANZAPINE 5 MG TABLET PO ONE (22:00)
[2019-11-28 22:13] LABS: ALANINE AMINOTRANSFERASE 31 U/L (12-78); ALBUMIN 4.2 g/dL (3.4-5.0); ALCOHOL, BLOOD < 3 mg/dL (0-0); ALKALINE PHOSPHATASE 78 U/L (46-116); ASPARTATE AMINOTRANSFERASE 34 U/L (15-37); BILIRUBIN,DIRECT 0.2 mg/dL (0.0-0.2); BILIRUBIN,TOTAL 0.6 mg/dL (0.2-1.0); CALCIUM, SERUM 8.9 mg/dL (8.5-10.1); CARBON DIOXIDE 26 mmol/L (21-32); CHLORIDE 102 mmol/L (98-107); CREATININE 1.1 mg/dL (0.6-1.3); GLUCOSE 109 mg/dL (74-106); POTASSIUM 4.3 mmol/L (3.5-5.1); SODIUM SERUM 137 mmol/L (136-145); TOTAL PROTEIN, SERUM 8.2 g/dL (6.4-8.2)
[2019-11-28 22:19] LABS: SALICYLATE 1.5 mg/dL (2.8-20.0)
[2019-11-28 22:24] LABS: ACETAMINOPHEN < 2 ug/ml (10-30); UREA NITROGEN, BLOOD 28 mg/dL (7-18)
--- NOTE | 2019-11-28 23:44 | NUR ---
PATIENT IS PACING AROUND EMERGENCY ROOM. PATIENT IS BECOMING AGITATED. PATIENT IS SPITTING AND CURSING AT STAFF. PATIENT IS CLENCHING FIST AND STEPPING INTO NURSE'S PERSONAL SPACE. UNABLE TO CALM PATIENT. MD IS NOTIFIED.
[2019-11-28 23:50] LABS: APPEARANCE,URINE Clear (CLEAR); BILIRUBIN,URINE Negative (NEGATIVE); BLOOD, URINE Negative Ery/uL (NEGATIVE); COLOR,URINE Yellow (YELLOW); KETONES,URINE Negative (NEGATIVE); LEUKOCYTE ESTERASE ,URINE Negative (NEGATIVE); NITRITE, URINE Negative (NEGATIVE); PROTEIN,URINE Negative (NEGATIVE); UGLUCOSE Negative (NEGATIVE); UROBILINOGEN,URINE 0.2 EU/dL (0.2)
[2019-11-28] MEDS ORDERED: LORAZEPAM INJ 2 MG/ML VIAL ONE (23:52)
[2019-11-28] MEDS ORDERED: HALOPERIDOL LACTATE INJ 5 MG/ML VIAL ONE (23:52)
[2019-11-28] MEDS ORDERED: diphenhydrAMINE HCL 50 MG/ML VIAL ONE (23:55)
--- NOTE | 2019-11-28 23:56 | NUR ---
PATIENT PLACED ON RESTRAINTS, ORDERED BY MD. WILL CHECK EVERY 2 HOURS FOR CIRCULATION. SITTER AT BEDSIDE.
[2019-11-29] MEDS ORDERED: LORAZEPAM INJ 2 MG/ML VIAL IM ONE
[2019-11-29] MEDS ORDERED: HALOPERIDOL LACTATE INJ 5 MG/ML VIAL IM ONE
--- NOTE | 2019-11-29 01:27 | NUR ---
PATIENT'S RESTRAINTS ARE ASSESSED. STRONG PULSE. CIRCULATION IS ADEQUATE, NO CHANGES IN SKIN COLOR.
--- NOTE | 2019-11-29 02:59 | NUR ---
PATIENT'S RESTRAINTS ARE BEING ASSESSED. +STRONG PULSE. CIRCULATION IS ADEQUATE, NO CHANGES IN SKIN COLOR. NO ACUTE DISTRESS NOTED.
--- NOTE | 2019-11-29 05:02 | NUR ---
PATIENT'S RESTRAINTS LOOSEN TO CHECK PULSE AND CIRCULATION. PATIENT'S PULSE IS STRONG AND EQUAL BILATERALLY. BLOOD PERFUSION ADEQUATE.
--- NOTE | 2019-11-29 06:38 | NUR ---
SEEN AND EXAMINED BY MD. MD ORDERED TO REMOVE RESTRAINTS. RESTRAINTS ARE REMOVED.
--- NOTE | 2019-11-29 07:00 | NUR ---
Pt resting comfortably, no acute signs/symptoms of distress noted at this time.
--- NOTE | 2019-11-29 08:34 | NUR ---
Pt provided with meal tray.
--- NOTE | 2019-11-29 10:15 | NUR ---
Pt provided with additional meal tray upon request
--- NOTE | 2019-11-29 14:12 | NUR ---
Pt denies any suicidal/homicidal ideation. Refuses homeless placement and resources. Pt refuses [facility]CI and to sign homeless waver. Pt requests to return to previous living situation on street. Patient discharged to home in stable condition. Written and verbal after care instructions offered and refused. Patient verbalizes understanding of instruction.
--- NOTE | 2019-11-29 14:12 | NUR ---
Pt counseled to detrimental effects of drug use and does not exhibit a willingness to quit
--- NOTE | 2019-11-29 14:12 | NUR ---
Paras kirk in [facility] - 11/29/19 at 1429 by NADINE Patient eloped from [facility]. FEDERICO MARTINEZ notified.
[2019-11-29 14:35] VITALS: BP 130/81
== END 2019-11-29 14:35 | disposition home or self-care (01) ==
LOC: ER 21:06
DX: M79.671 Pain in right foot (principal); M54.9 Dorsalgia, unspecified; F23 Brief psychotic disorder; F99 Mental disorder, not otherwise specified; F15.10 Other stimulant abuse, uncomplicated; F12.10 Cannabis abuse, uncomplicated; Z60.2 Problems related to living alone; Z79.899 Other long term (current) drug therapy
CPT/HCPCS: 36415; 80048; 80076; 80305; 80307; 80329; 81001; 85025; 96372 ×2; 99285; G0480; J1200; J1630; J2060; 81000-TC

== ENCOUNTER 2019-11-30 23:06 | Emergency (ER) | payer OTHER ==
[~2019-11-30] VITALS: Ht 190.5 cm; Wt 95.3 kg
--- NOTE | 2019-11-30 23:20 | NUR ---
bibself states "i want to kill myself plans to either get shot by a manager endoscopy or hang himself" denies hi. pt ao however noted with flights of ideas. rr even and unlabored. no sob noted. no nvd at this time. pt placed on montior waiting for md hollingsworth. pt placed on si precaution sitter within line of sight.
[2019-11-30] MEDS ORDERED: diphenhydrAMINE HCL 50 MG/ML VIAL ONE (23:24)
[2019-11-30] MEDS ORDERED: LORAZEPAM INJ 2 MG/ML VIAL ONE (23:24)
[2019-11-30] MEDS ORDERED: HALOPERIDOL LACTATE INJ 5 MG/ML VIAL ONE (23:24)
--- NOTE | 2019-11-30 23:25 | NUR ---
URINE COLLECTED. SENT TO LAB
--- NOTE | 2019-11-30 23:28 | NUR ---
Pt hat, shoes with laces and belt collected, placed in locker for pt safety, secuirty at bedside for wanding.
[2019-11-30] MEDS ORDERED: diphenhydrAMINE HCL 50 MG/ML VIAL IM ONE (23:30)
[2019-11-30] MEDS ORDERED: LORAZEPAM INJ 2 MG/ML VIAL IM ONE (23:30)
[2019-11-30] MEDS ORDERED: HALOPERIDOL LACTATE INJ 5 MG/ML VIAL IM ONE (23:30)
--- NOTE | 2019-11-30 23:30 | NUR ---
RADIOLOGY AT BEDSIDE FOR CXR
[2019-11-30 23:40] LABS: APPEARANCE,URINE Clear (CLEAR); BILIRUBIN,URINE SMALL (NEGATIVE); BLOOD, URINE Negative Ery/uL (NEGATIVE); COLOR,URINE Dark (YELLOW); KETONES,URINE Negative (NEGATIVE); LEUKOCYTE ESTERASE ,URINE Negative (NEGATIVE); NITRITE, URINE Negative (NEGATIVE); PH,URINE 5.5 (5.0-8.0); PROTEIN,URINE 30 mg/dl (NEGATIVE); UGLUCOSE Negative (NEGATIVE); UROBILINOGEN,URINE 0.2 EU/dL (0.2)
[2019-11-30 23:55] LABS: HEMATOCRIT 41 % (39-51); HEMOGLOBIN 13.6 g/dL (13.5-17.5); LYMPHOCYTES % (AUTO) 29.9 % (20.0-44.0); MEAN CORPUSCULAR HGB CONC 33 g/dl (31.0-36.0); MEAN CORPUSCULAR VOLUME 87 fL (80-96); MONOCYTES % (AUTO) 8.6 % (2.0-12.0); NEUTROPHILS % (AUTO) 59.4 % (43.0-81.0); PLATELET COUNT (AUTO) 313 /CMM (150-450); RED BLOOD CELL COUNT(AUTO) 4.67 MIL/uL (4.5-6.0); WHITE BLOOD COUNT (AUTO) 9.9 K/uL (4.3-11.0)
[2019-11-30 23:56] LABS: BASOPHILS # (AUTO) 0.1 /CMM (0.0-0.2); EOSINOPHILS % (AUTO) 1.1 % (0.0-6.0); MONOCYTES # (AUTO) 0.8 /CMM (0.1-1.30); NEUTROPHILS # (AUTO) 5.9 /CMM (1.8-8.9)
[2019-12-01] MEDS ORDERED: HALOPERIDOL LACTATE INJ 5 MG/ML VIAL ONE (00:01)
--- NOTE | 2019-12-01 00:01 | NUR ---
PATIENT IS CURSING AT STAFF AND AGITATED. PATIENT IS USING RACIAL SLURS AT STAFF. MD ORDERED HALDOL 5MG IM. PATIENT PLACED ON RN HEMATOLOGY.
[2019-12-01 00:03] LABS: BACTERIA,URINE None seen /HPF (None Seen); RBC,URINE 0-2 /HPF (0-2); SQUAMOUS EPITHELIAL CELL,UR Few /HPF (None Seen); WBC,URINE 0-2 /HPF (0-3)
[2019-12-01 00:03] LABS: CALCIUM, SERUM 8.7 mg/dL (8.5-10.1); CARBON DIOXIDE 23 mmol/L (21-32); CHLORIDE 101 mmol/L (98-107); GLUCOSE 87 mg/dL (74-106); POTASSIUM 3.9 mmol/L (3.5-5.1); SODIUM SERUM 136 mmol/L (136-145); UREA NITROGEN, BLOOD 17 mg/dL (7-18)
--- NOTE | 2019-12-01 00:03 | NUR ---
PATIENT MEDICATED ORDERED.
[2019-12-01 00:09] LABS: ACETAMINOPHEN 0 ug/ml (10-30); ALANINE AMINOTRANSFERASE 39 U/L (12-78); ALCOHOL, BLOOD 6 mg/dL (0-0); ALKALINE PHOSPHATASE 79 U/L (46-116); ASPARTATE AMINOTRANSFERASE 48 U/L (15-37); BILIRUBIN,DIRECT 0.2 mg/dL (0.0-0.2); BILIRUBIN,TOTAL 0.7 mg/dL (0.2-1.0); TOTAL PROTEIN, SERUM 7.7 g/dL (6.4-8.2)
[2019-12-01] MEDS ORDERED: HALOPERIDOL LACTATE INJ 5 MG/ML VIAL IM ONE (00:30)
--- NOTE | 2019-12-01 06:01 | NUR ---
MIRANDA parra at bedside for eval.
--- NOTE | 2019-12-01 06:10 | NUR ---
Patient discharged to home in stable condition. Written and verbal after care instructions given. Patient verbalizes understanding of instruction. Pt left E.D. Ambulated with steady gait.
[2019-12-01 06:11] VITALS: BP 121/76
== END 2019-12-01 06:11 | disposition home or self-care (01) ==
LOC: ER 23:09
DX: F23 Brief psychotic disorder (principal); R45.851 Suicidal ideations; F19.10 Other psychoactive substance abuse, uncomplicated; F32.9 Major depressive disorder, single episode, unspecified; Z60.2 Problems related to living alone; Z79.899 Other long term (current) drug therapy
CPT/HCPCS: 36415 ×2; 71045; 80048; 80076; 80305; 80307; 80329; 81001; 84484 ×2; 85025; 93005; 96372 ×3; 99285; G0480; J1200; J1630 ×2; J2060; 81000-TC

== ENCOUNTER 2020-02-01 02:04 | Emergency (ER) | payer OTHER ==
--- NOTE | 2020-02-01 02:21 | NUR ---
CALLED PT IN WR. PT REFUSED TO BE SEEN AT THIS TIME. RISK AND BENEFITS EXPLAINED X3. PT STATES "HMMM I NEED TO STEP OUTSIDE MY LEG HURTS" THEN LEFT.
--- NOTE | 2020-02-01 02:38 | NUR ---
2ND ATTEMPT. CALLED PT IN WR X3. NO ONE RESPONDED. WILL FOLLOW UP.
--- NOTE | 2020-02-01 03:05 | NUR ---
3RD ATTEMPT. CALLED PT IN WR X3. NO ONE RESPONDED.
== END 2020-02-01 03:07 | disposition left against medical advice (07) ==
LOC: ER 02:07
DX: Z53.21 Procedure and treatment not carried out due to patient leaving prior to being seen by health care provider (principal)

== ENCOUNTER 2020-02-01 03:15 | Emergency (ER) | payer OTHER ==
[~2020-02-01] VITALS: Ht 190.5 cm; Wt 101.6 kg
--- NOTE | 2020-02-01 03:49 | NUR ---
PT PLACED IN GOWN. PT PLACED ON SAFETY PRECAUTION. SITTER WITHIN LINE OF SIGHT. PERSONAL BELONGINGS PLACED IN LOCKER. SECURITY AT BEDSIDE FOR WANDING. PT PROVIDED UA. SENT TO LAB
--- NOTE | 2020-02-01 04:01 | NUR ---
TIE BUYER AT BEDSIDE FOR BLOOD DRAW.
[2020-02-01 04:13] LABS: BASOPHILS # (AUTO) 0.2 /CMM (0.0-0.2); BASOPHILS % (AUTO) 2.4 % (0.0-2.0); EOSINOPHILS % (AUTO) 2.6 % (0.0-6.0); HEMATOCRIT 40 % (39-51); HEMOGLOBIN 13.3 g/dL (13.5-17.5); LYMPHOCYTES # (AUTO) 1.8 /CMM (0.8-4.8); LYMPHOCYTES % (AUTO) 27.7 % (20.0-44.0); MEAN CORPUSCULAR HGB CONC 34 g/dl (31.0-36.0); MEAN CORPUSCULAR VOLUME 89 fL (80-96); MONOCYTES # (AUTO) 0.5 /CMM (0.1-1.30); MONOCYTES % (AUTO) 8.2 % (2.0-12.0); NEUTROPHILS # (AUTO) 3.9 /CMM (1.8-8.9); NEUTROPHILS % (AUTO) 59.1 % (43.0-81.0); PLATELET COUNT (AUTO) 272 /CMM (150-450); RED BLOOD CELL COUNT(AUTO) 4.45 MIL/uL (4.5-6.0); WHITE BLOOD COUNT (AUTO) 6.5 K/uL (4.3-11.0)
[2020-02-01 04:42] LABS: APPEARANCE,URINE SL CLOUDY (CLEAR); BILIRUBIN,URINE NEGATIVE (NEGATIVE); BLOOD, URINE NEGATIVE Ery/uL (NEGATIVE); COLOR,URINE YELLOW (YELLOW); KETONES,URINE NEGATIVE (NEGATIVE); LEUKOCYTE ESTERASE ,URINE NEGATIVE (NEGATIVE); NITRITE, URINE NEGATIVE (NEGATIVE); PROTEIN,URINE NEGATIVE (NEGATIVE); UGLUCOSE NEGATIVE (NEGATIVE); UROBILINOGEN,URINE 0.2 EU/dL (0.2)
[2020-02-01 05:03] LABS: CALCIUM, SERUM 8.8 mg/dL (8.5-10.1); CARBON DIOXIDE 25 mmol/L (21-32); CHLORIDE 106 mmol/L (98-107); CREATININE 0.8 mg/dL (0.6-1.3); GLUCOSE 94 mg/dL (74-106); POTASSIUM 3.8 mmol/L (3.5-5.1); SODIUM SERUM 140 mmol/L (136-145); UREA NITROGEN, BLOOD 12 mg/dL (7-18)
[2020-02-01 05:06] LABS: ACETAMINOPHEN 0 ug/ml (10-30)
[2020-02-01 05:45] LABS: ALANINE AMINOTRANSFERASE 23 U/L (12-78); ALBUMIN 3.5 g/dL (3.4-5.0); ALKALINE PHOSPHATASE 82 U/L (46-116); ASPARTATE AMINOTRANSFERASE 27 U/L (15-37); BILIRUBIN,DIRECT 0.1 mg/dL (0.0-0.2); BILIRUBIN,TOTAL 0.3 mg/dL (0.2-1.0); TOTAL PROTEIN, SERUM 6.9 g/dL (6.4-8.2)
[2020-02-01 06:12] LABS: ALCOHOL, BLOOD < 3 mg/dL (0-0)
--- NOTE | 2020-02-01 06:21 | NUR ---
PATIENT IS SLEEPING. EASILY AROUSABLE THROUGH TOUCH AND VERBAL STIMULI. PATIENT IS BREATHING EVENLY AND UNLABORED ON ROOM AIR. SITTER AT THE BEDSIDE.
--- NOTE | 2020-02-01 09:00 | NUR ---
pt's facesheet and clinicals sent to [facility] intake.
--- NOTE | 2020-02-01 09:11 | NUR ---
PT ON DO NOT ADMIT IN [facility].
--- NOTE | 2020-02-01 09:14 | NUR ---
CALLED [facility] [phone] LEFT ING.
--- NOTE | 2020-02-01 10:31 | NUR ---
MOVESHEET FOR ER OBS TURNED IN TO ADMITTING.
--- NOTE | 2020-02-01 13:09 | NUR ---
lunch tray provided, tolerating PO well
--- NOTE | 2020-02-01 14:01 | NUR ---
called [facility], pt's facesheet and clinicals faxed.
--- NOTE | 2020-02-01 15:45 | NUR ---
pt stating feeling much better and no longer suicidal. ermd dr garrett in to see patient. denies si/hi. ambulatory w/ steady gait. and w/ stable vitals. medically and psych cleared. homeless waiver form signed. discharge in stable condition.
[2020-02-01 16:00] VITALS: BP 136/84
== END 2020-02-01 16:00 | disposition home or self-care (01) ==
LOC: ER 03:17
DX: R45.851 Suicidal ideations (principal); F32.9 Major depressive disorder, single episode, unspecified; Z98.890 Other specified postprocedural states; Z60.2 Problems related to living alone; Z79.899 Other long term (current) drug therapy
CPT/HCPCS: 36415; 80048; 80076; 80305; 80307; 80329; 81001; 85025; 99283; G0480; 81000-TC

== ENCOUNTER 2020-08-09 23:20 | Emergency (ER) | payer OTHER ==
[~2020-08-09] VITALS: Ht 193 cm; Wt 95.3 kg
--- NOTE | 2020-08-09 23:45 | NUR ---
X RAY AT BED SIDE
--- NOTE | 2020-08-10 | NUR ---
COVID SWAB COLLECTED, CALLED LAB FOR ORTHOPHOTOGRAPHY TECHNICIAN
--- NOTE | 2020-08-10 00:02 | NUR ---
URINE COLLECTED AND SENT TO LAB
[2020-08-10 00:10] LABS: CALCIUM, SERUM 8.9 mg/dL (8.5-10.1); CARBON DIOXIDE 29 mmol/L (21-32); CHLORIDE 102 mmol/L (98-107); CREATININE 0.8 mg/dL (0.6-1.3); GLUCOSE 99 mg/dL (74-106); POTASSIUM 3.7 mmol/L (3.5-5.1); SODIUM SERUM 138 mmol/L (136-145); UREA NITROGEN, BLOOD 11 mg/dL (7-18)
[2020-08-10 00:17] LABS: ALANINE AMINOTRANSFERASE 27 U/L (12-78); ALBUMIN 3.5 g/dL (3.4-5.0); ALCOHOL, BLOOD < 3 mg/dL (0-0); ALKALINE PHOSPHATASE 100 U/L (46-116); ASPARTATE AMINOTRANSFERASE 22 U/L (15-37); BILIRUBIN,DIRECT 0.1 mg/dL (0.0-0.2); BILIRUBIN,TOTAL 0.3 mg/dL (0.2-1.0); TOTAL PROTEIN, SERUM 7.4 g/dL (6.4-8.2)
[2020-08-10 00:20] LABS: BASOPHILS % (AUTO) 0.4 % (0.0-2.0); EOSINOPHILS % (AUTO) 2.6 % (0.0-6.0); HEMATOCRIT 42 % (39-51); HEMOGLOBIN 13.7 g/dL (13.5-17.5); LYMPHOCYTES # (AUTO) 2.1 /CMM (0.8-4.8); LYMPHOCYTES % (AUTO) 32.1 % (20.0-44.0); MEAN CORPUSCULAR HGB CONC 33 g/dl (31.0-36.0); MEAN CORPUSCULAR VOLUME 88 fL (80-96); MONOCYTES # (AUTO) 0.6 /CMM (0.1-1.30); MONOCYTES % (AUTO) 9.5 % (2.0-12.0); NEUTROPHILS # (AUTO) 3.6 /CMM (1.8-8.9); NEUTROPHILS % (AUTO) 55.4 % (43.0-81.0); PLATELET COUNT (AUTO) 401 /CMM (150-450); RED BLOOD CELL COUNT(AUTO) 4.78 MIL/uL (4.5-6.0); WHITE BLOOD COUNT (AUTO) 6.6 K/uL (4.3-11.0)
[2020-08-10 00:30] LABS: ACETAMINOPHEN < 2 ug/ml (10-30)
[2020-08-10 00:44] LABS: BILIRUBIN,URINE NEGATIVE (NEGATIVE); COLOR,URINE YELLOW (YELLOW); LEUKOCYTE ESTERASE ,URINE NEGATIVE (NEGATIVE); NITRITE, URINE NEGATIVE (NEGATIVE); PROTEIN,URINE NEGATIVE (NEGATIVE); UGLUCOSE NEGATIVE (NEGATIVE); UROBILINOGEN,URINE 0.2 EU/dL (0.2)
--- NOTE | 2020-08-10 01:00 | NUR ---
EMT AT BED SIDE TO APPLY SPLINT
--- NOTE | 2020-08-10 02:08 | NUR ---
Facesheet and clinicals faxed to [facility].
--- NOTE | 2020-08-10 03:26 | NUR ---
[facility] from [facility]. Pt accepted by Dr Duenas, [address]. # for report [phone]
--- NOTE | 2020-08-10 03:38 | NUR ---
[facility] transportation called for transport. Trip#[id number]
[2020-08-10 05:29] VITALS: BP 148/79
--- NOTE | 2020-08-10 05:29 | NUR ---
REPORT GIVEN TO JERICHO PORTILLO FROM [facility] FOR BREANNA
[2020-08-10] MEDS ORDERED: OLANZAPINE 5 MG TABLET PO ONE (05:30)
[2020-08-10] MEDS ORDERED: OLANZAPINE 5 MG TABLET ONE (05:32)
--- NOTE | 2020-08-10 07:51 | NUR ---
REPORT GIVEN TO [phone] FOR TRANSPORTATION BRE[facility]
== END 2020-08-10 07:56 ==
LOC: ER 23:22
DX: R45.851 Suicidal ideations (principal); S62.357A Nondisplaced fracture of shaft of fifth metacarpal bone, left hand, initial encounter for closed fracture; W22.8XXA Striking against or struck by other objects, initial encounter; Y92.89 Other specified places as the place of occurrence of the external cause; F25.0 Schizoaffective disorder, bipolar type; F43.10 Post-traumatic stress disorder, unspecified; F19.10 Other psychoactive substance abuse, uncomplicated; Z79.899 Other long term (current) drug therapy; Z20.822 Contact with and (suspected) exposure to COVID-19
CPT/HCPCS: 29125; 36415; 73130; 80048; 80076; 80299; 80307; 80320; 81003; 85025; 87426; 99285; C9803; G0480

== ENCOUNTER 2020-11-22 05:32 | Emergency (ER) | payer MEDICAID, OTHER ==
[~2020-11-22] VITALS: Ht 193 cm; Wt 95.3 kg
--- NOTE | 2020-11-22 07:09 | NUR ---
PT BIB SELF C/O SI "I WANT TO HANG MY SELF" PT IS AAOX4, NOT IN RESPIRATORY DISTRESS, V/S STABLE, KEPT RESTED AND COMFORTABLE. WILL CONTINUE TO MONITOR.
--- NOTE | 2020-11-22 07:26 | NUR ---
SEEN AND EXAMINED BY .
--- NOTE | 2020-11-22 07:38 | NUR ---
ER PHLEB AT BEDSIDE FOR BLOOD DRAW.
--- NOTE | 2020-11-22 08:00 | NUR ---
covid swab collected and sent to lab
[2020-11-22 08:02] LABS: BILIRUBIN,URINE NEGATIVE (NEGATIVE); COLOR,URINE YELLOW (YELLOW); LEUKOCYTE ESTERASE ,URINE NEGATIVE (NEGATIVE); NITRITE, URINE NEGATIVE (NEGATIVE); PROTEIN,URINE TRACE mg/dl (NEGATIVE); UGLUCOSE NEGATIVE (NEGATIVE)
[2020-11-22 08:09] LABS: CALCIUM, SERUM 8.9 mg/dL (8.5-10.1); CARBON DIOXIDE 28 mmol/L (21-32); CHLORIDE 107 mmol/L (98-107); GLUCOSE 82 mg/dL (74-106); POTASSIUM 4.5 mmol/L (3.5-5.1); SODIUM SERUM 142 mmol/L (136-145); UREA NITROGEN, BLOOD 16 mg/dL (7-18)
[2020-11-22 08:10] LABS: BASOPHILS % (AUTO) 0.3 % (0.0-2.0); EOSINOPHILS % (AUTO) 1.3 % (0.0-6.0); HEMATOCRIT 42 % (39-51); HEMOGLOBIN 14.1 g/dL (13.5-17.5); LYMPHOCYTES # (AUTO) 1.2 /CMM (0.8-4.8); LYMPHOCYTES % (AUTO) 16.2 % (20.0-44.0); MEAN CORPUSCULAR HGB CONC 33 g/dl (31.0-36.0); MEAN CORPUSCULAR VOLUME 88 fL (80-96); MONOCYTES # (AUTO) 0.5 /CMM (0.1-1.30); NEUTROPHILS # (AUTO) 5.6 /CMM (1.8-8.9); NEUTROPHILS % (AUTO) 75.2 % (43.0-81.0); PLATELET COUNT (AUTO) 344 /CMM (150-450); WHITE BLOOD COUNT (AUTO) 7.4 K/uL (4.3-11.0)
[2020-11-22 08:15] LABS: ALANINE AMINOTRANSFERASE 31 U/L (12-78); ALCOHOL, BLOOD < 3 mg/dL (0-0); ALKALINE PHOSPHATASE 132 U/L (46-116); ASPARTATE AMINOTRANSFERASE 23 U/L (15-37); BILIRUBIN,DIRECT 0.1 mg/dL (0.0-0.2); BILIRUBIN,TOTAL 0.4 mg/dL (0.2-1.0)
[2020-11-22 08:16] LABS: ACETAMINOPHEN 0 ug/ml (10-30)
[2020-11-22 08:28] LABS: RBC,URINE 0-2 /HPF (0-2); WBC,URINE 0-2 /HPF (0-3)
[2020-11-22 08:29] LABS: SQUAMOUS EPITHELIAL CELL,UR Rare /HPF (None Seen)
[2020-11-22 08:30] LABS: BACTERIA,URINE None seen /HPF (None Seen)
--- NOTE | 2020-11-22 13:53 | NUR ---
[facility]
--- NOTE | 2020-11-22 14:17 | NUR ---
SPOKE WITH ART AT [facility] PT ON A DO NOT ADMIT LIST.
--- NOTE | 2020-11-22 14:23 | NUR ---
ELLIOTT CALLED [phone] LEFT [facility].
[2020-11-22] MEDS ORDERED: diphenhydrAMINE HCL 50 MG/ML VIAL ONE (15:25)
[2020-11-22] MEDS ORDERED: OLANZAPINE 10 MG VIAL IM ONE ×2 (15:25→15:30)
[2020-11-22] MEDS ORDERED: LORAZEPAM INJ 2 MG/ML VIAL ONE (15:26)
[2020-11-22] MEDS ORDERED: diphenhydrAMINE HCL 50 MG/ML VIAL IM ONE (15:30)
[2020-11-22] MEDS ORDERED: LORAZEPAM INJ 2 MG/ML VIAL IM ONE (15:30)
--- NOTE | 2020-11-22 15:31 | NUR ---
ELLIOTT CALLED ETA 60 MINS.
--- NOTE | 2020-11-22 22:06 | NUR ---
SPOKE TO CRISIS BISQUE KILN DRAWER ELLIOTT RN REGARDING PT'S EVAL. PER ELLIOTT, PROVIDE PT WITH RESOURCES AND CAN BE DISCHARGED.
--- NOTE | 2020-11-23 03:23 | NUR ---
SPOKE WITH BELT MOLDER JERICHO GALLAGHER. ETA 1 HOUR
--- NOTE | 2020-11-23 10:39 | NUR ---
BANQUET COORDINATOR AT BEDSIDE FOR EVAL.
[2020-11-23] MEDS ORDERED: OLANZAPINE 10 MG VIAL IM ONE ×2 (12:00→12:29)
--- NOTE | 2020-11-23 12:07 | NUR ---
"Sports Cartoonist consult: Sports Cartoonist consult requested for suicidal ideation. Patient is a 45-year-old, male. Per chart, patient was brought in by self on 11/22/20 and presented with suicidal ideation. SW met with patient at his bedside on the emergency department. Patient was alert and oriented x4. Patient presented well-groomed and was resting. Per chart, ED junior staff accountant faxed clinicals to [facility], but patient was not accepted. SW will follow up with alternative placement options. SW asked patient if he has any current suicidal ideation and patient stated that he is currently feeling suicidal without a plan. Patient denies homicidal ideation. Patient agrees to voluntary psychiatric placement. SW assessed patients history of mental illness and patient stated that he has a history of Schizoaffective disorder (Bipolar type) and ADHD. Patient stated that he is currently taking Zyprexa. Patient stated that he is currently homeless and has been homeless for a year. Patient receives SSI as a source of income and stated that he is independent with his ADLs. Patient reported that he has access to social support and is in contact with his father. SW assessed patients substance use history and patient stated that he currently uses amphetamine and marijuana (1-2x daily). SW provided patient with homeless and substance use resources. Patient thanked this SW and accepted the resources. SW provided patient with the homeless waiver. Patient signed the waiver and SW filed the waiver in the patients chart. Patient agrees to voluntary psychiatric placement. SW will follow up with this plan. PLAN: SW will refer patient to inpatient psychiatric hospitals for voluntary admission. SW will follow up with nursing staff, as needed. Year-round shelters: [facility] [address] [place] [address] ; [facility] [place] [address] [place] [address]; [facility] [facility]. [facility] [address] SPA 4 | [facility] [place] Provider: [facility] Address: [address], [address] # of Beds: 48 Population Served: [facility] Provider: First to Serve Address: [address] [facility], [address] # of Beds: 73 Population Served: Coed SPA 6 | [facility] Provider: [facility] Last Address: [address] [facility], [address] # of Beds: 63 Population Served: Coed SPA 3 | [facility] Provider: [facility] [place] Address: [address] [facility], [address] # of Beds: 75 Population Served: Coed SPA 8 | [facility] Provider: [facility] [place] Address: [address] [facility], [address] # of Beds: 80 Population Served: Coed SPA 1 | [facility] Provider: [facility] [place] Address: [address] [place] [address], [address] # of Beds: 85 Population Served: Coed SPA 2 | [facility] Provider: Farnaz [facility] Address: Confidential (please call for location) # of Beds: 52 Population Served: Coed SPA 4 | [facility] Provider: [facility] Address: [address] [facility], [address] # of Beds: 49 Population Served: [facility] Provider: First To Serve Address: [address] [place] [address], [address] # of Beds: 27 Population Served: Curt [facility]: [facility]: [address] [address] ; [facility] [address] [facility] ; [facility] [address] . Food Resources: [place] [facility] at [facility]- [address] [facility] [facility]; Meet Each Need with [facility]ign[facility] ([facility]) [address] [facility]; [facility] [address] [facility]; [facility] [address] [facility] [place]. Mental Health resources provided: [facility] [address] [place], [place] [address] ; [facility] [place] [address] [facility] [address], [place] [address] ; [facility] [address] [facility] [place], [place] [id number] ; [facility] [address] [place], [place] [address] Healthcare Clinics: [facility] [address] [facility], [address] [place]. [place] ; [facility] [address] [facility] [address] [place] [address]; [facility] [address] [facility] [place] [phone] Counseling--[facility]patient [facility] [address] [facility], [address] [place], [place] [id number] (Specializes in in-depth psychotherapy for emotional distress: anxiety, depression, interpersonal conflicts, life transitions, childhood abuse) PSYCHIATRIC OUTPATIENT SERVICES [facility] Partial Hospitalization and Intensive Outpatient Program (Managed Care and [place] Only) [address] [facility]. [facility] 694[address] [facility] Partial [facility]ization and Outpatient Program [address] [facility]. [address] [place], [place] [id number] [facility] Partial Hospitalization and Outpatient Program [address] [facility]. [place], [place] [id number] [facility] [place] [facility] [address] [facility]. [address] [place], [place] [address] [facility] Partial Hospitalization and Outpatient Program [address] [place], [place] [phone] Substance use resources provided included: [facility] Substance Abuse Self-Helpline (SAS) ; [facility] [address] [facility]. [place] [address] ; [facility] [address] [facility] [address] ; [facility] [address] [facility] [phone] ; [facility] [address] [facility] [address] ; [facility] [address] [facility] [phone] ; [facility]; [facility] [place]; [facility] [place] [facility]; Alcoholics Anonymous -SFV"
--- NOTE | 2020-11-23 12:22 | NUR ---
PT STATED HE IS NOT SUICIDAL AND WANTS TO FOLLOW UP WITH THE PSYCH MD. ER MD AWARE.
--- NOTE | 2020-11-23 12:30 | NUR ---
CERTIFIED PERSONAL TRAINER AT BEDSIDE FOR EVAL.
--- NOTE | 2020-11-23 12:35 | NUR ---
Patient given written and verbal discharge instructions. Patient verbalizes understanding of instructions. Patient is ambulatory with steady gait. Refuses offer of fdc placement. Patient given list of available shelters in surrounding area.
[2020-11-23 12:38] VITALS: BP 139/88
--- NOTE | 2020-11-23 14:55 | NUR ---
Binder Operator note: This RECORD CHANGER met with patient earlier today due to suicidal ideation. Patient had agreed to be referred to an inpatient psychiatric hospital for voluntary admission. This RECORD CHANGER was called to meet with patient again, as patient was now denying SI. Per ED staff development nurse, patient denies current suicidal ideation. This RECORD CHANGER met with patient again, and patient stated, I feel a lot better after taking the medication and have to go since I have an appointment at [facility]. Patient stated that he had an appointment at [facility] ([address] [place] [address]; [phone]) at 14:00. SW formulated a safety plan with the patient and asked him if he was aware of where to go if he was feeling suicidal at a later time. Patient stated that he was aware where to go and was able to contract for his safety. Patient stated that he would utilize mental health resources in the homeless resource packet that was provided by this SW earlier today. SW provided patient with contact information for: [facility] [address] [place] [address]; [phone] Patient stated that he will return to his prior living arrangement on the streets. Patient stated that he takes the bus for transportation. PLAN: Patient plans to be discharged to the streets. Homeless resources provided earlier today and patient signed homeless waiver. SW filed homeless waiver in the patient's chart. No further SS interventions at this time, however, SW will remain available as needed.
== END 2020-11-23 12:49 | disposition home or self-care (01) ==
LOC: ER 05:34
DX: R45.851 Suicidal ideations (principal); Z20.822 Contact with and (suspected) exposure to COVID-19; F31.9 Bipolar disorder, unspecified; F90.9 Attention-deficit hyperactivity disorder, unspecified type; F19.10 Other psychoactive substance abuse, uncomplicated; Z88.8 Allergy status to other drugs, medicaments and biological substances
CPT/HCPCS: 36415; 80048; 80076; 80299; 80307; 80320; 81001; 85025; 87426; 96372 ×2; 99285; C9803; J1200; J2060; J3490 ×2; G0480

== ENCOUNTER 2021-06-30 01:19 | Emergency (ER) | payer MEDICAID, OTHER ==
[~2021-06-30] VITALS: Ht 190.5 cm; Wt 111.1 kg
--- NOTE | 2021-06-30 02:37 | NUR ---
PRESENTED TO THE ER FOR C/O SI PLAN TO OD ON HIS PILLS. REQUESTING MEDICAL CLEARANCE FOR VOLUNTARY PSYCH ADMISSION,. AMBULATORY W./ STEADY GAITS TO THE BATHROOM. URINE SAMPLE COLLECTED. PT WAS PLACED ON SI PRECAUTION. VSS. WILL CONT TO MONITOR
--- NOTE | 2021-06-30 02:45 | NUR ---
URINE COLLECTED AND SENT TO LAB
--- NOTE | 2021-06-30 02:46 | NUR ---
COVID SWAB COLLECTED AND SENT TO LAB
[2021-06-30 02:55] LABS: BASOPHILS # (AUTO) 0.1 K/uL (0.0-0.2); BASOPHILS % (AUTO) 1.4 % (0.0-2.0); EOSINOPHILS % (AUTO) 1.7 % (0.0-6.0); HEMATOCRIT 43 % (39-51); HEMOGLOBIN 14.5 g/dL (13.5-17.5); LYMPHOCYTES # (AUTO) 2.1 K/uL (0.8-4.8); LYMPHOCYTES % (AUTO) 26.1 % (20.0-44.0); MEAN CORPUSCULAR HGB CONC 33 g/dl (31.0-36.0); MEAN CORPUSCULAR VOLUME 89 fL (80-96); MONOCYTES # (AUTO) 0.6 K/uL (0.1-1.30); MONOCYTES % (AUTO) 7.8 % (2.0-12.0); PLATELET COUNT (AUTO) 444 K/uL (150-450); RED BLOOD CELL COUNT(AUTO) 4.85 MIL/uL (4.5-6.0); WHITE BLOOD COUNT (AUTO) 7.9 K/uL (4.3-11.0)
[2021-06-30 03:24] LABS: CALCIUM, SERUM 8.9 mg/dL (8.5-10.1); CARBON DIOXIDE 27 mmol/L (21-32); CHLORIDE 102 mmol/L (98-107); GLUCOSE 97 mg/dL (74-106); POTASSIUM 4.5 mmol/L (3.5-5.1); SODIUM SERUM 139 mmol/L (136-145); UREA NITROGEN, BLOOD 12 mg/dL (7-18)
[2021-06-30 03:27] LABS: ALANINE AMINOTRANSFERASE 35 U/L (12-78); ALBUMIN 3.7 g/dL (3.4-5.0); ALCOHOL, BLOOD < 3 mg/dL (0-0); ALKALINE PHOSPHATASE 99 U/L (46-116); ASPARTATE AMINOTRANSFERASE 22 U/L (15-37); BILIRUBIN,DIRECT 0.1 mg/dL (0.0-0.2); BILIRUBIN,TOTAL 0.3 mg/dL (0.2-1.0); TOTAL PROTEIN, SERUM 8.2 g/dL (6.4-8.2)
[2021-06-30 03:35] LABS: BILIRUBIN,URINE NEGATIVE (NEGATIVE); COLOR,URINE YELLOW (YELLOW); LEUKOCYTE ESTERASE ,URINE NEGATIVE (NEGATIVE); NITRITE, URINE NEGATIVE (NEGATIVE); PROTEIN,URINE NEGATIVE (NEGATIVE); UGLUCOSE NEGATIVE (NEGATIVE); UROBILINOGEN,URINE 0.2 EU/dL (0.2)
[2021-06-30 03:36] LABS: ACETAMINOPHEN 0 ug/ml (10-30)
--- NOTE | 2021-06-30 05:18 | NUR ---
FAXED CLINICALS AND FACE SHEET TO [facility]
[2021-06-30 07:15] VITALS: BP 139/80
--- NOTE | 2021-06-30 07:30 | NUR ---
THE PATIENT IS ALERT AND ORIENTED X4. DENIES PAIN. IN ROOM AIR AND DENIES SOB. RESPIRATION REGULAR AND UNLABORED. WILL CONTINUE TO MONITOR THE PATIENT.
--- NOTE | 2021-06-30 07:40 | NUR ---
PROVIDED BREAKFAST, TOLERATED WELL
--- NOTE | 2021-06-30 08:09 | NUR ---
CALLED SO [facility] FOR FOLLOW UP ON CLINICALS. SPOKE TO [facility] AND THEY RECIEVED CLINICALS, JUST WAITING ON THEIR HOUSE SUPERVISORS FEEDBACK FOR ACCEPTANCE. WILL CALL US BACK.
--- NOTE | 2021-06-30 11:02 | NUR ---
RECEIVED A CALL FROM [facility]. PT ACCEPTED TO UNIT 2. NUMBER FOR REPORT IS [phone]. IF NOT ABLE TO ACCESS FIRST NUMBER CALL CHARGE AT: [phone]. DR. WASSERMAN IS THE ACCEPTING MD.
--- NOTE | 2021-06-30 12:11 | NUR ---
CALLED [facility] FOR TRANSPORT TO [facility]. ETA 30 MINUTES.
--- NOTE | 2021-06-30 12:36 | NUR ---
REPORT GIVEN TO NURSE LYNN FROM [facility]
--- NOTE | 2021-06-30 12:58 | NUR ---
[facility] ARRIVED ON SCENE TO SPOT CLEANER PATIENT. NO PATIENT FOUND. PATIENT ELOPED FROM THE EMERGENCY DEPARTMENT.
--- NOTE | 2021-06-30 13:00 | NUR ---
The patient eloped from the hospital. Last seen [address] Lincoln notified.
--- NOTE | 2021-06-30 13:00 | NUR ---
Paras kirk in EDM - 06/30/21 at 1350 by ODELL Patient eloped from facility. Dr Lincoln aware notified.
== END 2021-06-30 13:51 | disposition left against medical advice (07) ==
LOC: ER 01:22
DX: R45.851 Suicidal ideations (principal); F25.9 Schizoaffective disorder, unspecified; F31.9 Bipolar disorder, unspecified; F90.9 Attention-deficit hyperactivity disorder, unspecified type; F43.10 Post-traumatic stress disorder, unspecified; Z79.899 Other long term (current) drug therapy; Z82.49 Family history of ischemic heart disease and other diseases of the circulatory system; F19.10 Other psychoactive substance abuse, uncomplicated; Z20.822 Contact with and (suspected) exposure to COVID-19; Z53.29 Procedure and treatment not carried out because of patient's decision for other reasons
CPT/HCPCS: 36415; 80048; 80076; 80143; 80307; 80320; 81003; 85025; 87426; 99285; C9803; G0480